=== PATIENT | male | born 1995 | race Caucasian/White ===

== ENCOUNTER → 2022-07-09 | Outpatient (CLI) | payer OTHER | LOC: M LABSMTC 11:30 | PROVIDERS: ATTEND Anesthesiology | DX: Z01.818 Encounter for other preprocedural examination (principal); Z11.52 Encounter for screening for COVID-19 ==

== ENCOUNTER 2022-07-14 07:27 | Day surgery (SDC) | payer OTHER ==
[~2022-07-14] VITALS: Ht 190.5 cm; Wt 98.9 kg
[~2022-07-14 07:27] MED LIST: ceFAZolin SOD 2 GM in IV 1 EA IV ONE
[2022-07-14] MEDS ORDERED: LR 1,000 ML IV SCH ×2 (08:20→10:45)
[2022-07-14] MEDS ORDERED: MIDAZOLAM INJ 2MG/2ML VIAL (J2250 PER 1MG) As Ordered ONE (08:24)
[2022-07-14] MEDS ORDERED: LIDOCAINE 2% 100MG/5ML SDV (FOR ANES.) As Ordered ONE (08:24)
[2022-07-14] MEDS ORDERED: dexameTHASONE 4 MG/ML 1ML VIAL (J1100 PER 1MG) As Ordered ONE (08:24)
[2022-07-14] MEDS ORDERED: ONDANSETRON 4MG 2ML VIAL As Ordered ONE (08:24)
[2022-07-14] MEDS ORDERED: propofoL 200 MG/20 ML VIAL As Ordered ONE (08:24)
[2022-07-14] MEDS ORDERED: fentaNYL 250 MCG/5 ML INJECTION As Ordered ONE (08:24)
[2022-07-14] MEDS ORDERED: BACITRACIN OINTMENT 30GM TUBE As Ordered ONE (09:04)
[2022-07-14] MEDS ORDERED: OXYC1TAB23 PO (09:18)
[2022-07-14] MEDS ORDERED: ACETAMINOPHEN 1000MG 100ML IV BTL (OFIRMEV) (J0131 PER 10MG) As Ordered ONE (09:59)
[2022-07-14] MEDS ORDERED: fentaNYL 100 MCG/2 ML INJECTION IV PRN (10:45)
[2022-07-14] MEDS ORDERED: ONDANSETRON 4MG 2ML VIAL IV PRN (10:45)
[2022-07-14] MEDS ORDERED: oxyCODONE 5MG TAB PO PRN (10:45)
[2022-07-14] MEDS: HYDROMORPHONE HCL 0.5 MG/ 0.5 ML SYRINGE (J1170 PER 1) IV PRN ×4 (11:19→11:35)
[2022-07-14] MEDS ORDERED: PERCOCET 5MG/325MG TAB PO PRN (12:30)
== END 2022-07-14 12:21 | disposition home or self-care (01) ==
LOC: M SDC 07:27
PROVIDERS: ATTEND Urology
DX: N47.1 Phimosis (principal)
CPT/HCPCS: 54161; 88304; J0131; J0690; J1100; J1170; J2250; J2405; J3010

== ENCOUNTER → 2025-04-20 | Outpatient (REF) | payer OTHER ==
[~2025-04-20] MED LIST changes: +OXYC1TAB23 PO; -ceFAZolin SOD 2 GM in IV 1 EA IV ONE
[2025-04-20 21:02] LABS: Trichomonas vaginalis (AMP) NOT DETECTED (NEGATIVE)
[2025-04-20 21:25] LABS: GC DNA AMPLIFICATION NEGATIVE (NEGATIVE)
== END ==
LOC: M LAB REF 18:45
PROVIDERS: ATTEND Student in an Organized Health Care Education/Training Program
DX: Z11.3 Encounter for screening for infections with a predominantly sexual mode of transmission (principal)